=== PATIENT | female | born 1965 | race Two or more races ===

== ENCOUNTER 2017-05-30 02:39 | Emergency (ER) | payer SELFPAY ==
[2017-05-30 02:50] VITALS: RESP 16
--- NOTE | 2017-05-30 03:18 | EDPHY ---
H & P Stated Complaint: FEVER, CHILLS, COUGH X 2 DAYS Time Seen by Provider: 05/30/17 02:50 HPI/ROS: HPI CHIEF COMPLAINT: Cough, chills HISTORY OF PRESENT ILLNESS: Patient very pleasant 52-year-old female she is otherwise healthy, she presents emergency room at 3:15 a.m. In the morning for cough, chills, subjective fever at home for the past 72 hr. She states she started feeling ill 3 days ago. She did get a flu shot on and shortly after that started feeling ill. She developed a nonproductive cough she complains of muscle aches and joint pain and feeling fatigued. She denies any chest pain or shortness of breath denies vomiting. Denies diarrhea. Denies urinary symptoms. Main complaint is muscle aches and joint pain and cough. Past Medical History: Denies Medical history Past Surgical History: Denies surgical history Social History: Denies drugs alcohol tobacco. Family History: Noncontributory ROS REVIEW OF SYSTEMS: A comprehensive 10 point review of systems is otherwise negative aside from elements mentioned in the history of present illness. Exam Constitutional appears well nontoxic no acute distress, triage nursing summary reviewed, vital signs reviewed, awake/alert. Eyes normal conjunctivae and sclera, EOMI, PERRLA. HENT normal inspection, atraumatic, moist mucus membranes, no epistaxis, neck supple/ no meningismus, no raccoon eyes. Respiratory clear to auscultation bilaterally, normal breath sounds, no respiratory distress, no wheezing. Cardiovascular rate normal, regular rhythm, no murmur, no edema, distal pulses normal. Gastrointestinal soft, non-tender, no rebound, no guarding, normal bowel sounds, no distension, no pulsatile mass. Genitourinary no CVA tenderness. Musculoskeletal no midline vertebral tenderness, full range of motion, no calf swelling, no tenderness of extremities, no meningismus, good pulses, neurovascularly intact. Skin pink, warm, & dry, no rash, skin atraumatic. Neurologic awake, alert and oriented x 3, AAOx3, moves all 4 extremities equally, motor intact, sensory intact, CN II-XII intact, normal cerebellar, normal vision, normal speech. Psychiatric normal mood/affect. Heme/Lymph/Immune no lymphadenopathy. Differential Diagnosis: Includes but is not limited to in a particular order bronchitis, upper respiratory tract infection, viral syndrome, influenza, pneumonia, bacterial pneumonia Medical Decision Making: Plan for this patient two view chest x-ray, [place] for pain control and cough suppression, ibuprofen, influenza and re-evaluate. Re-evaluation: ED x-ray chest two view: Negative for acute cardiopulmonary disease. No infiltrate no pneumonia. 0506: Patient positive for influenza B. She has had at least 3 days of symptoms. I do not think she would benefit from Tamiflu. Prescription given for albuterol, azithromycin, prednisone. She understands drink lots of fluids. Stay well-hydrated. Return emergency room if she has worsening symptoms questions or concerns. Keep her fever down. She understands. Source: Patient - Personal History LMP (Females 10-55): Post Menopausal Current Tetanus Diphtheria and Acellular Pertussis (TDAP): No - Medical/Surgical History Hx Asthma: No Hx Chronic Respiratory Disease: No Hx Diabetes: No Hx Cardiac Disease: No Hx Renal Disease: No Hx Cirrhosis: No Hx Alcoholism: No Hx HIV/AIDS: No Hx Splenectomy or Spleen Trauma: No Other PMH: ANEURYSM BRAIN W/ CLIPS, BACK SX HERNIA - Social History Smoking Status: Never smoked Constitutional: Initial Vital Signs Temperature (C) 37.5 C 05/30/17 02:46 Heart Rate 97 05/30/17 02:46 Respiratory Rate 16 05/30/17 02:46 Blood Pressure 128/82 H 05/30/17 02:46 O2 Sat (%) 97 05/30/17 02:46 O2 Delivery Mode Room Air Allergies/Adverse Reactions: No Known Allergies Allergy (Verified 05/30/17 02:46) Home Medications: Medication Instructions Recorded Albuterol [Proventil Inhaler HFA 1 - 2 puffs IH Q4H #1 mdi 05/30/17 (*)] Azithromycin [Zithromax] 250 mg PO DAILY #6 tab 05/30/17 predniSONE 60 mg PO DAILY #15 tab 05/30/17 Medical Decision Making - Data Points Laboratory Results: 05/30/17 03:50 Nasal Influenza A PCR NEGATIVE FOR FLU A (NEGATIVE) Nasal Influenza B PCR FLU B DETECTED H (NEGATIVE) Medications Given: Discontinued Medications Hydrocodone Bitart/Acetaminophen ([place] 5/325) 1 tab PO EDNOW ONE Stop: 05/30/17 03:22 Last Admin: 05/30/17 03:50 Dose: 1 tab Azithromycin (Zithromax) 500 mg PO EDNOW ONE PRN Reason: Protocol Stop: 05/30/17 04:00 Last Admin: 05/30/17 04:10 Dose: 500 mg Ibuprofen (Motrin) 800 mg PO EDNOW ONE Stop: 05/30/17 03:22 Last Admin: 05/30/17 03:50 Dose: 800 mg Prednisone (Prednisone) 60 mg PO EDNOW ONE Stop: 05/30/17 04:00 Last Admin: 05/30/17 04:10 Dose: 60 mg Departure - Departure Disposition: Home, Routine, Self-Care Clinical Impression: Viral syndrome, Influenza Condition: Good Instructions: Viral Syndrome (ED), Influenza (ED) Additional Instructions: 1. Make sure to drink lots of fluids stay well-hydrated. 2. I recommend you alternate Tylenol Motrin every 4-6 hours for fever pain control. 3. Return emergency room if develops worsening symptoms questions or concerns. Referrals: NONE *PRIMARY CARE P,. [Primary Care Provider] - As per Instructions Prescriptions: Albuterol [Proventil Inhaler HFA (*)] 1 - 2 puffs IH Q4H #1 mdi Azithromycin [Zithromax] 250 mg PO DAILY #6 tab predniSONE 60 mg PO DAILY #15 tab
[2017-05-30] MEDS ORDERED: IBUPROFEN 800 MG TAB PO ONE (03:21)
[2017-05-30] MEDS ORDERED: HYDROCODONE/APAP 5/325 TAB PO ONE (03:21)
[2017-05-30] MEDS ORDERED: AZITHROMYCIN 250 MG TAB PO ONE (03:59)
[2017-05-30] MEDS ORDERED: predniSONE 20 MG TAB PO ONE (03:59)
[2017-05-30 05:42] VITALS: BP 109/66; PULSE 70; TEMP 98.8; O2SAT 94
== END 2017-05-30 05:42 | disposition home or self-care (01) ==
DX: J10.1 Influenza due to other identified influenza virus with other respiratory manifestations (principal)
CPT/HCPCS: J7512

== ENCOUNTER → 2018-07-12 | Outpatient (CLI) | payer OTHER | LOC: FIMAGING 09:19 | PROVIDERS: ATTEND Physician Assistant | DX: R13.10 Dysphagia, unspecified (principal) ==